=== PATIENT | female | born 1985 | race Hispanic/Latino ===

== ENCOUNTER 2017-08-20 09:24 | Emergency (ER) | payer BC ==
[2017-08-20 09:52] VITALS: BP 125/57; PULSE 86; O2SAT 100
[2017-08-20 10:17] VITALS: RESP 16
--- NOTE | 2017-08-20 11:06 | ED PDOC ---
Lower Extremity Pain/Injury Time Seen by Provider: 08/20/17 10:15 Chief Complaint (Nursing): Lower Extremity Problem/Injury Chief Complaint (Provider): Left calf injury History Per: Patient History/Exam Limitations: no limitations Onset/Duration Of Symptoms: Hrs (earlier today) Current Symptoms Are (Timing): Still Present Additional Complaint(s): 32 year old female presents to the emergency department complaining of left calf pain onset earlier today while playing tennis. Patient states while playing , she had her left leg planted, and when she went to run, felt pain and heard a "pop." Denies blunt trauma. When asked, patient pointed to her mid left calf to indicate where the pain was the worst. PMD: Jessie Chaudhry Past Medical History Reviewed: Historical Data, Nursing Documentation, Vital Signs Vital Signs: Last Vital Signs Temp 98.0 F 08/20/17 10:09 Pulse 86 08/20/17 10:09 Resp 16 08/20/17 10:09 BP 125/57 L 08/20/17 10:09 Pulse Ox 100 08/20/17 10:09 - Medical History PMH: No Chronic Diseases - Surgical History Other surgeries: rt knee surgery, rt sprained ankle - Family History Family History: States: Unknown Family Hx - Social History Current smoker - smoking cessation education provided: No Alcohol: Social Drugs: Denies - Immunization History Hx Tetanus Toxoid Vaccination: No Hx Influenza Vaccination: No Hx Pneumococcal Vaccination: No - Allergies Allergies/Adverse Reactions: Allergies Allergy/AdvReac Type Severity Reaction Status Date / Time rifampin Allergy Severe RASH Verified 08/20/17 10:19 vancomycin Allergy Severe RASH Verified 08/20/17 10:18 Review of Systems ROS Statement: Except As Marked, All Systems Reviewed And Found Negative Constitutional: Negative for: Other (blunt trauma) Musculoskeletal: Positive for: Leg Pain (left calf, specifically mid calf) Physical Exam - Reviewed Nursing Documentation Reviewed: Yes Vital Signs Reviewed: Yes - Physical Exam Appears: Positive for: No Acute Distress Head Exam: Positive for: ATRAUMATIC, NORMOCEPHALIC Skin: Positive for: Normal Color, Warm, Dry Pulses-Dorsalis Pedis (L): 2+ Pulses-Dorsalis Pedis (R): 2+ Extremity: Positive for: Normal ROM (actively to left knee and left ankle), Calf Tenderness (left), Other (Negative french's sign of left leg). Negative for: Deformity (to left calf), Swelling (to left calf) Neurologic/Psych: Positive for: Alert, Oriented (x3). Negative for: Motor/ Sensory Deficits - ECG O2 Sat by Pulse Oximetry: 100 (RA) Pulse Ox Interpretation: Normal - Radiology X-Ray: Interpreted by Me (Tib/Fib x-ray) X-Ray Interpretation: No Acute Disease Medical Decision Making Medical Decision Making: Initial Impression: calf injury Time: 10:41 Initial Plan: --Urine --Motrin 600mg PO --Left Tibia Fibula XR --Ice Pt. states she contacted her family orthopedist and she has an appointment this coming Tuesday. Pt. took Motrin 800mg of her own. Crutches provided. Scribe Attestation: Documented by Chel Morales, acting as a scribe for Bernard Dugan PA-C. Provider Scribe Attestation: All medical entries made by the Scribe were at my direction and personally dictated by me. I have reviewed the chart and agree that the record accurately reflects my personal performance of the history, physical exam, medical decision making, and the department course for this patient. I have also personally directed, reviewed, and agree with the discharge instructions and disposition. Disposition - Clinical Impression Clinical Impression: Strain of calf muscle - Patient ED Disposition Is Patient to be Admitted: No - Disposition Referrals: Toshia Ortiz [Outside] Disposition: Routine/Home Disposition Time: 12:00 Condition: STABLE Additional Instructions: Follow up with orthopedist for further evaluation. Return to ED immediately if symptoms worsen. Instructions: Lower Extremity Muscle Strain (DC) Forms: Toshia Valverde (Slovak), [facility] ED School/Work Excuse Print Language: KITTITIAN
--- NOTE | 2017-08-20 12:03 | RAD ---
PROCEDURE: Radiographs of the left tibia and fibula. HISTORY: trauma COMPARISON: None available. TECHNIQUE: Frontal and lateral views obtained. FINDINGS: BONES: No fracture or destructive lesion. JOINT SPACES: Unremarkable. OTHER FINDINGS: None. IMPRESSION: Unremarkable radiographs of the left tibia and fibula.
[2017-08-20 13:33] VITALS: TEMP 98.1
== END 2017-08-20 12:05 | disposition home or self-care (01) ==
LOC: H.ER 09:24
DX: S86.812A Strain of other muscle(s) and tendon(s) at lower leg level, left leg, initial encounter (principal); X50.9XXA Other and unspecified overexertion or strenuous movements or postures, initial encounter; Y92.312 Tennis court as the place of occurrence of the external cause